=== PATIENT | female | born 1995 | race Caucasian/White ===

== ENCOUNTER 2017-11-22 11:20 | Emergency (ER) | payer BC, OTHER ==
[2017-11-22] MEDS: ONDANSETRON (ODT) 4 MG TAB ODT (12:43)
[2017-11-22] MEDS: HYDROCODONE/APAP (5/325) TAB PO (12:44)
[2017-11-22] MEDS ORDERED: CLINDAMYCIN 600 MG/D5W (PMX) 50 ML IVPB (13:00)
[2017-11-22] MEDS: CLINDAMYCIN 300 MG INJ IM (13:05)
== END 2017-11-22 13:46 | disposition home or self-care (01) ==
LOC: FTE 13:46
DX: K04.7 Periapical abscess without sinus (principal)
CPT/HCPCS: 96372; 99284-25